=== PATIENT | male | born 1960 | race African-American/Black ===

== ENCOUNTER 2018-10-06 10:54 | Emergency (ER) | payer MEDICARE, OTHER ==
[2018-10-06] MEDS ORDERED: LORAZEPAM 2 MG INJ IV (11:30)
[2018-10-06] MEDS: LORAZEPAM 2 MG INJ IM (12:51)
[2018-10-06 12:54] LABS: ADD MAN DIFF? NO
[2018-10-06 13:01] LABS: WHITE BLOOD COUNT 8.1 10^3/ul (4.8-10.8)
[2018-10-06 13:01] LABS: ABNORMAL IP MESSAGE 1; BASOPHILS % 0.1 % (0.0-2.0); EOSINOPHILS # 0.1 10^3/ul (0.0-0.5); EOSINOPHILS % 0.7 % (0.0-7.0); HEMATOCRIT 41.7 % (42.0-52.0); LYMPHOCYTES # 0.6 10^3/ul (0.8-2.9); LYMPHOCYTES % 7.2 % (15.0-51.0); MEAN CORPUSCULAR HEMOGLOBIN 28.6 pg (29.0-33.0); MEAN CORPUSCULAR HGB CONC 31.2 g/dl (32.0-37.0); MEAN CORPUSCULAR VOLUME 91.9 fl (82.0-101.0); MEAN PLATELET VOLUME 9.2 fl (7.4-10.4); MONOCYTE # 0.4 10^3/ul (0.3-0.9); MONOCYTES % 4.9 % (0.0-11.0); NEUTROPHILS % 86.6 % (39.0-77.0); PLATELET COUNT 320 10^3/UL (140-415); POSITIVE DIFF @See below; RED BLOOD COUNT 4.54 10^6/ul (4.70-6.10); RED CELL DISTRIBUTION WIDTH 14.6 % (11.5-14.5)
[2018-10-06 13:20] LABS: INR 0.93; PROTIME 12.6 Sec (11.9-14.9)
[2018-10-06 13:21] LABS: PARTIAL THROMBOPLASTIN TIME 30.9 Sec (23.0-35.0)
[2018-10-06 13:22] LABS: ANION GAP 11 (5-13); BLOOD UREA NITROGEN 7 mg/dl (7-20); CALCIUM 8.9 mg/dl (8.4-10.2); CARBON DIOXIDE 30 mmol/L (21-31); CHLORIDE 100 mmol/L (97-110); Estimated GFR > 60 mL/min (>60); GLUCOSE 112 mg/dl (70-220); SODIUM 141 mmol/L (135-144)
[2018-10-06 13:34] LABS: TROPONIN-I < 0.012 ng/ml (0.000-0.120)
== END 2018-10-06 16:13 | disposition home or self-care (01) ==
LOC: E/R 10:54
DX: R41.82 Altered mental status, unspecified (principal); R56.9 Unspecified convulsions; J18.9 Pneumonia, unspecified organism; J45.909 Unspecified asthma, uncomplicated; R07.9 Chest pain, unspecified
CPT/HCPCS: 36415; 70450; 71045; 80048; 83605; 84484; 85025; 85610; 85730; 87040; 96372; 99285-25